=== PATIENT | male | born 1945 | race African-American/Black ===

== ENCOUNTER → 2016-11-29 | Day surgery (SDC) | payer OTHER ==
[2016-11-29] VITALS (7 sets, daily range): BP systolic 112–159; BP diastolic 76–94
[~2016-11-29] VITALS: Ht 175.3 cm; Wt 98.9 kg
[~2016-11-29] MED LIST: AMLODIPINE BESY10 MG ORAL; ASPIR 8181 MG ORAL; Akten 3.5% 1ml Btl LEFT EYE SCH; BSS 15ml BTL ONE; BSS 500ml btl ONE; COLACE100 MG ORAL; COUMADIN5 MG ORAL; COUMADIN7.5 MG ORAL; Dexamethasone 4mg/ml vial ONE; Diclofenac Sod 0.1% Op Soln LEFT EYE SCH; DiphenhydrAMINE 50mg/ml Inj IVP PRN; ENALAPRIL MALEA20 MG PO; EPINEPHrine 1mg/1ml Amp ONE; FELODIPINE ER2.5 MG PO; FELODIPINE ER5 MG PO; Gatifloxacin Opth Solution 0.5% LEFT EYE SCH; HYDROCHLOROTHIA25 MG PO; LIPITOR10 MG ORAL; LISINOPRIL40 MG ORAL; LOVENOX10 M3 SUBQ; LR 1000ml 1,000 ML IVLG SCH; LR 1000ml ONE; Labetalol 5mg/ml 20ml vial IV PRN; Lidocaine 1% MPF 10mg/ml 5ml ONE; NITROSTAT0.4 M2 SL; NS Irrig 1000ml ONE; Phenylephrine 2.5% Op Soln LEFT EYE SCH; Povidone-Iodine 5% opth solution ONE; SENOKOT8.6 MG ORAL; Sodium Hyaluronate 14 mg/ml 0.85ml ONE; Sterile Water Irrig 1000ml IRRIG ONE; TYLENOL ARTHRI650 M1 PO; Tobradex Opth Susp 2.5ml LEFT EYE SCH; Tropicamide 1% Opth Soln LEFT EYE SCH; WARFARIN SODIUM5 MG ORAL; fentaNYL 100 mcg/2 mL IV ONE
--- NOTE | 2016-11-29 07:40 | Anethesia Preoperative Eval ---
Anesthesia Pre-op PMH/ROS General Date of Evaluation: Nov 29, 2016 Anesthesiologist: Paloom ASA Score: ASA 3 Mallampati Score Class I : Soft palate, uvula, fauces, pillars visible Class II: Soft palate, uvula, fauces visible Class III: Soft palate, base of uvula visible Class IV: Only hard plate visible Mallampati Classification: Class III Surgeon: Aubrey Diagnosis: Left cataract Surgical Procedure: Left cataract extraction with IOL Anesthesia History: none Social History: alcohol use - alcohol dependence Family History: no anesthesia problems Allergies: Coded Allergies: NO KNOWN ALLERGIES (Unverified Allergy, Unknown, 03/07/15) Medications: see eMAR Past Medical History Cardiovascular: Reports: CAD, HTN, other - s/p CABg and aortic valve replacement, HLD, valve dz, Denies: [place], arrhythmia Pulmonary: Denies: COPD, [place], asthma, other Gastrointestinal/Genitourinary: Reports: GERD, other - hiatal hernia, Denies: CRI, ESRD Neurologic/Psychiatric: Reports: CVA - 2012, depression/anxiety Endocrine: Denies: DM, hypothyroidism, other, steroids HEENT: Denies: HYDABURG (L), HYDABURG (R), cataract (L), cataract (R), glaucoma, other Hematology/Immune: Reports: anemia, Denies: DVT, bleeding disorder, other Musculoskeletal/Integumentary: Reports: OA, Denies: DDD, DJD, RA, edema, other Other: obesity Anesthesia Pre-op Phys. Exam Physician Exam see chart Constitutional: NAD Cardiovascular: RRR Respiratory: CTA Airway Exam Mallampati Score: Class III Anesthesia Pre-op A/P Labs see chart Studies Pre-op Studies: EKG - sr Risk Assessment & Plan Assessment: ASA III Plan: MAC Status Change Before Surgery: No Pre-Antibiotics Drug: N/A MALIA HAGEN M.D. Nov 29, 2016 07:40
--- NOTE | 2016-11-29 07:47 | Pre-Procedure Note/Attestation ---
Pre-Procedure Note/Attestation Complete Prior to Procedure Planned Procedure: left Procedure Narrative: cataract extraction with implant left eye Indications for Procedure Pre-Operative Diagnosis: cataract left eye Attestation I attest that I discussed the nature of the procedure; its benefits; risks and complications; and alternatives (and the risks and benefits of such alternatives ), prior to the procedure, with the patient (or the patient's legal ambulatory service representative). I attest that, if there was a reasonable possibility of needing a blood transfusion, the patient (or the patient's legal ambulatory service representative) was given the [facility] standardized written summary, pursuant to the [place] Blood Safety Act ([place] Health and Safety Code # 1645, as amended). I attest that I re-evaluated the patient just prior to the surgery and that there has been no change in the patient's H&P, except as documented below: ALEXI ASCENCIO Nov 29, 2016 07:47
--- NOTE | 2016-11-29 08:44 | 48 Hour Post Anesthesia Eval ---
Post Anesthesia Evaluation Procedure: Left cataract extraction with IOL Date of Evaluation: Nov 29, 2016 Blood Pressure Systolic: 144 0: 89 Pulse Rate: 64 Respiratory Rate: 16 O2 Sat by Pulse Oximetry: 100 Airway: patent Nausea: No Vomiting: No Pain Intensity: 0 Hydration Status: adequate Cardiopulmonary Status: at baseline Mental Status/LOC: patient returned to baseline Post-Anesthesia Complications: 0 Follow-up care needed: ready to discharge MALIA HAGEN M.D. Nov 29, 2016 08:44
--- NOTE | 2016-11-29 08:44 | Immediate Post-Op Evaluation ---
Immediate Post-Op Evalulation Immediate Post-Op Evalulation Procedure: Left cataract extraction with IOL Date of Evaluation: Nov 29, 2016 Time of Evaluation: 10:15 IV Fluids: 200 Blood Products: 0 Estimated Blood Loss: 0 Urinary Output: 0 Blood Pressure Systolic: 159 Blood Pressure Diastolic: 94 Pulse Rate: 66 Respiratory Rate: 16 O2 Sat by Pulse Oximetry: 98 Temperature (Fahrenheit): 97.6 Pain Score (1-10): 0 Nausea: No Vomiting: No Complications 0 Patient Status: awake, reacts, patent, none Hydration Status: adequate Drug: N/A MALIA HAGEN M.D. Nov 29, 2016 08:44
--- NOTE | 2016-11-29 10:15 | Brief Operative Note ---
Immediate Post Operative Note Operative Note Pre-op Diagnosis: cataract left eye Procedure: phacoemulsification of cataract with implant left eye Post-op Diagnosis: same as pre-op Surgeon: alexi gresham House Father: none Anesthesiologist: neva abdi Anesthesia: MAC Specimen: none Complications: none Condition: stable Estimated Blood Loss: none Drains: none Implant(s) used?: Yes ALEXI GRESHAM Nov 29, 2016 10:15
--- NOTE | 2016-11-29 20:48 | Operative Note - Dictated ---
DATE OF OPERATION: 11/29/2016 PREOPERATIVE DIAGNOSIS: Cataract, left eye. POSTOPERATIVE DIAGNOSIS: Cataract, left eye. PROCEDURE: Phacoemulsification of cataract left eye with placement of posterior chamber intraocular lens. SURGEON: Femi Burgos M.D. ([facility] [place] WEB MERCHANDISER: None. ANESTHESIOLOGIST: Elli Zavala M.D. ANESTHESIA: MAC/topical. INDICATION FOR PROCEDURE: Poor vision, left eye. DESCRIPTION OF FINDINGS: Nuclear sclerotic and cortical cataract, left eye. DESCRIPTION OF PROCEDURE: The patient received a topical anesthetic block consisting of 3.5% Akten eye drops. The eye was then prepped and draped in usual manner. A lid speculum was placed. An operating Zeiss microscope was positioned. A temporal corneal groove was made with the elle blade. A SuperSharp blade made a stab incision at the 6 o'clock position. A 0.1 mL of 1% nonpreserved intracameral lidocaine was injected. Healon was instilled into the anterior chamber and a 2.5/2.8 mm trapezoidal elle blade was used to complete the temporal corneal wound. A cystotome was used to create an anterior capsular flap. Utrata forceps were used to complete the capsulorrhexis. BSS on a cannula was used to hydrodissect the nucleus. The lens nucleus was phacoemulsified in a phaco-fracture technique. The remaining cortical material was removed with the I/A and the posterior capsule polished with the I/A on Cap vac. Healon was instilled into the capsular bag and anterior chamber, and an Steen foldable one-piece posterior chamber intraocular lens, model ZCB00, power 18.5 diopter, serial number [id number] was placed in the injector. The lens was put into the capsular bag. The I/A tip was used to remove the Healon and position the lens. The wound edge was hydrated with BSS and a blunt-tipped cannula. The wound was checked and found to be watertight. The lid speculum was removed and a drop of TobraDex and Zymaxid was placed. A clear plastic shield was taped over the eye. The patient tolerated the procedure well and left the operating room in good condition. Femi Burgos M.D. ([facility]) DR: MCKENZIE JOB#: [id number] CC: Dr. Hopkins
== END | disposition home or self-care (01) ==
LOC: SUR 06:40
DX: H25.12 Age-related nuclear cataract, left eye (principal); Z79.01 Long term (current) use of anticoagulants; Z87.891 Personal history of nicotine dependence; I48.91 Unspecified atrial fibrillation; I73.9 Peripheral vascular disease, unspecified; I12.9 Hypertensive chronic kidney disease with stage 1 through stage 4 chronic kidney disease, or unspecified chronic kidney disease; N18.2 Chronic kidney disease, stage 2 (mild); I25.10 Atherosclerotic heart disease of native coronary artery without angina pectoris; M47.892 Other spondylosis, cervical region; M47.896 Other spondylosis, lumbar region; M19.012 Primary osteoarthritis, left shoulder; N52.9 Male erectile dysfunction, unspecified; Z95.2 Presence of prosthetic heart valve; Z86.73 Personal history of transient ischemic attack (TIA), and cerebral infarction without residual deficits; M17.11 Unilateral primary osteoarthritis, right knee; Z95.1 Presence of aortocoronary bypass graft
CPT/HCPCS: 66984; J0171; J1100; J3010; J7120; V2632; 94003; 94150